=== PATIENT | male | born 1955 | race Hispanic/Latino ===

== ENCOUNTER 2018-12-13 05:58 | Observation (INO) | payer OTHER ==
[2018-12-08 10:10] LABS: BASOPHILS % (AUTO) 0.2 % (0.0-5.0); HEMATOCRIT 41.1 % (42-54); LYMPHOCYTES % (AUTO) 7.8 % (21.0-51.0); MEAN CORPUSCULAR HEMOGLOBIN 33.5 pg (27.0-33.0); MEAN CORPUSCULAR HGB CONC 34.5 g/dL (32.0-36.0); MEAN CORPUSCULAR VOLUME 97.1 fL (79-99); MONOCYTES % (AUTO) 4.2 % (3.0-13.0); NEUTROPHILS % (AUTO) 87.8 % (40.0-77.0); PLATELET COUNT (AUTO) 216 K/uL (130-400); RED BLOOD CELL COUNT(AUTO) 4.23 MIL/uL (4.50-6.20); WHITE BLOOD COUNT (AUTO) 9.3 K/uL (4.8-10.8)
[2018-12-08 10:12] LABS: APPEARANCE,URINE Clear (CLEAR); BILIRUBIN,URINE Negative (NEGATIVE); COLOR,URINE Yellow (YELLOW); GLUCOSE, URINE (UA) 250 mg/dL (NEGATIVE); KETONES,URINE Trace mg/dL (NEGATIVE); LEUKOCYTE ESTERASE ,URINE Trace (NEGATIVE); NITRATE,URINE Negative (NEGATIVE); OCCULT BLOOD,URINE Negative (NEGATIVE); PROTEIN,URINE POS 1+ (NEGATIVE)
[2018-12-08 10:21] LABS: INR 1.02 (0.85-1.15); PARTIAL THROMBOPLASTIN TIME 30.4 SEC (26.3-35.5); PROTHROMBIN TIME 10.7 SEC (9.6-11.6)
[2018-12-08 10:29] LABS: BACTERIA,URINE Rare /HPF (None Seen); RBC,URINE None Seen /HPF (0-1); SQUAMOUS EPITHELIAL CELL,UR Few /HPF (0-2); WBC,URINE 0-1 /HPF (0-1)
[2018-12-08 10:30] LABS: MUCUS,URINE Rare LPF (None Seen)
[2018-12-08 10:31] VITALS: BP 121/55
[2018-12-08 10:31] LABS: CREATININE 1.7 mg/dL (0.5-1.5)
--- NOTE | 2018-12-12 12:27 | NUR ---
ABNORMAL LABS REPORTED ABNORMAL LABS TO TEO REY. [id number], BUN 41, CREATINE 1.7. REDRAW BMP, START NS 100ML/HR ON ARRIVAL.
--- NOTE | 2018-12-12 12:31 | NUR ---
CHEST XRAY REPORTED ABNORMAL CHEST XRAY TO TEO REY. NO NEW ORDERS.
[~2018-12-13] VITALS: Ht 160 cm; Wt 90.2 kg
[2018-12-13] VITALS (10 sets, daily range): BP systolic 108–159; BP diastolic 58–83
[~2018-12-13 05:58] MED LIST: AMLODIPINE PO; ASPI-555 PO; CLOP75TA14 PO; ISOS30TA6 PO; LISI40TA4 PO; METF-444 PO; METO25TA6 PO; MONT10TA24 PO; RANO500T3 PO; SIMV40TA5 PO; SODIUM CHLORIDE 0.9% 500ML 500 ML IV SCH; TAMS0.4C32 PO
[2018-12-13 06:36] LABS: CREATININE 1.6 mg/dL (0.5-1.5); POTASSIUM 5.3 mmol/L (3.5-5.1)
--- NOTE | 2018-12-13 07:30 | NUR ---
NOTIFIED DIO BRUCE : INFORMED OF REDRAWN LAB RESULTS, BMP, NO NEW ORDERS RECEDVIED, INFORMED PT STATES HE HAS HAD A COUGH HAS BEEN SICK LAST 10 DAYS, STATES HE HAD A FEVER 8 DAYS AGO, TOOK ZPACK FROM [facility] LAST DOSE WAS YESTERDAY. NO FEVER TODAY, IS COUGHING, INSTRUCTED BY PA TO GIVE PT TESALON PEARLS FOR COUGH.
[2018-12-13] MEDS: SODIUM CHLORIDE 0.9% 1000ML 1,000 ML IV SCH ×3 (07:37→21:30)
[2018-12-13] MEDS: BENZONATATE 100 MG CAPSULE PO SCH ×2 (09:28→18:49)
[2018-12-13] MEDS ORDERED: IOHEXOL-350 50ML VIAL IV ONE (13:19)
[2018-12-13] MEDS ORDERED: IOHEXOL 350 MG/ML 100ML INFUS..BTL IV ONE ×2 (13:19→15:51)
[2018-12-13] MEDS ORDERED: LIDOCAINE HCL 1% 20 ML VIAL ONE (13:19)
[2018-12-13] MEDS ORDERED: HEPARIN SODIUM 1000UNIT/ML 10ML VIAL ONE (13:19)
[2018-12-13] MEDS ORDERED: NITROGLYCERIN 5 MG/ML 10 ML VIAL IV ONE (13:19)
[2018-12-13] MEDS ORDERED: MEPERIDINE-PF 25 MG/ML SYG ONE ×2 (15:02→15:18)
[2018-12-13] MEDS ORDERED: MIDAZOLAM HCL 1 MG/ML 2ML VIAL ONE ×2 (15:02→15:18)
[2018-12-13] MEDS ORDERED: DEXTROSE 50%-WATER 50 ML DISP.SYRIN IV PRN (16:30)
[2018-12-13] MEDS ORDERED: GLUCAGON 1MG KIT 1 MG ML IM PRN (16:30)
[2018-12-13] MEDS: INSULIN HUMULIN R 100 UNIT/ML 3ML SQ SCH ×2 (16:30→21:00)
[2018-12-13] MEDS ORDERED: ACETAMINOPHEN-CODEINE 300/30MG TAB PO PRN (16:30)
--- NOTE | 2018-12-13 17:15 | NUR ---
POST PROCEDURE RECEIVED PT FROM DIESEL ENGINE MECHANIC APPRENTICE, IN FLAT POSITION, A&OX3, CALM COOPERATIVE AND DOES NOT APPEAR TO BE IN ANY DISTRESS NOR ANY NEURO DEFICITS PRESENT. RT GROIN SOFT NONTENDER WITH NO OOZING OR HEMATOMA PRESENT. RT DP/PT PULSES PALPABLE, LEFT DP/PT PULSES BY DOPPLER. PT ON FLAT BEDREST UNTIL 2229. CALL LIGHT WITHIN REACH, FAMILY AT BEDSIDE.
[2018-12-13] MEDS ORDERED: PHARMACY COMMUNICATION MISC SCH (19:45)
--- NOTE | 2018-12-13 20:00 | NUR ---
ASSESSMENT PATIENT IS AAOX3. PATIENT DENIES CHEST PAIN AND SHORTNESS OF BREATH. ON ROOM AIR. RESPIRATIONS UNLABORED. SINUS RHYTHM HR 60'S TO 70'S. S/P LEFT HEART CATH. RT. GROIN SOFT WITHOUT BLEEDING OR HEMATOMA. PEDAL PULSES PALPABLE. NS INFUSING AT 125ML/HR. SEE DOCUMENTATION FOR FULL ASSESSMENT. CALL LIGHT WITHIN REACH. INSTRUCTED PATIENT TO CALL IF ASSISTANCE IS NEEDED. Addendum: 12/14/18 at 0055 by MIGUEL TRUJILLO RN RN BEDREST OVER AT 2230. REMINDED PATIENT NOT TO BEND OR LIFT RT LEG. PATIENT VERBALIZED UNDERSTANDING.
[2018-12-13] MEDS ORDERED: SIMVASTATIN 20 MG TABLET PO SCH (21:00)
[2018-12-13] MEDS: ISOSORBIDE MONO 30MG TAB SR PO SCH (21:00)
[2018-12-13] MEDS: METOPROLOL TARTRATE 25 MG TAB PO SCH (21:00)
--- NOTE | 2018-12-13 21:05 | NUR ---
RT. GROIN SOFT WITHOUT BLEEDING OR HEMATOMA.
[2018-12-13] MEDS: GUAIFENESIN-DM 200/20 MG 10 ML PO PRN (21:25)
--- NOTE | 2018-12-13 23:20 | NUR ---
RT. GROIN CONTINUES TO BE SOFT WITHOUT BLEEDING OR HEMATOMA.
[2018-12-14] MEDS: SODIUM CHLORIDE 0.9% 1000ML 1,000 ML IV SCH ×2 (00:29→02:00)
[2018-12-14 04:02] VITALS: BP 102/57
[2018-12-14 04:52] LABS: BASOPHILS % (AUTO) 0.8 % (0.0-5.0); EOSINOPHILS % (AUTO) 1.9 % (0.0-8.0); HEMATOCRIT 38.8 % (42-54); LYMPHOCYTES % (AUTO) 24.4 % (21.0-51.0); MEAN CORPUSCULAR HGB CONC 34.7 g/dL (32.0-36.0); MEAN CORPUSCULAR VOLUME 95.1 fL (79-99); MONOCYTES % (AUTO) 6.6 % (3.0-13.0); NEUTROPHILS % (AUTO) 66.3 % (40.0-77.0); PLATELET COUNT (AUTO) 247 K/uL (130-400); RED BLOOD CELL COUNT(AUTO) 4.07 MIL/uL (4.50-6.20); RED CELL DISTRIBUTION WIDTH 13.7 % (11.0-15.5); WHITE BLOOD COUNT (AUTO) 10.4 K/uL (4.8-10.8)
[2018-12-14 05:00] LABS: ALBUMIN 2.7 g/dL (3.5-5.0); BILIRUBIN,TOTAL 0.6 mg/dL (0.2-1.0); CREATININE 1.2 mg/dL (0.5-1.5); POTASSIUM 4.1 mmol/L (3.5-5.1); TOTAL PROTEIN, SERUM 6.5 g/dL (6.0-8.3)
--- NOTE | 2018-12-14 05:40 | NUR ---
RT. LAYA CARDENAS.
[2018-12-14] MEDS: INSULIN HUMULIN R 100 UNIT/ML 3ML SQ SCH ×2 (06:10→11:30)
[2018-12-14 07:48] VITALS: BP 120/68
[2018-12-14] MEDS ORDERED: MONTELUKAST SODIUM 10 MG TAB PO SCH (09:00)
[2018-12-14] MEDS ORDERED: CLOPIDOGREL BISULFATE 75 MG TAB PO SCH (09:00)
[2018-12-14] MEDS ORDERED: LISINOPRIL 40 MG TABLET PO SCH (09:00)
[2018-12-14] MEDS ORDERED: TAMSULOSIN HCL 0.4 MG CAP.ER.24H PO SCH (09:00)
[2018-12-14] MEDS ORDERED: RANOLAZINE 500 MG TAB.SR.12H PO SCH (09:00)
[2018-12-14] MEDS ORDERED: ASPIRIN 81MG TAB.CHEW PO SCH (09:00)
[2018-12-14] MEDS ORDERED: AMLODIPINE BESYLATE 2.5 MG TAB PO SCH (09:00)
[2018-12-14] MEDS: METOPROLOL TARTRATE 25 MG TAB PO SCH (09:43)
[2018-12-14] MEDS: ISOSORBIDE MONO 30MG TAB SR PO SCH (09:44)
[2018-12-14] MEDS ORDERED: METHYLPREDNISOLONE SOD SUCC 40MG/ML 1ML IVP SCH (09:45)
[2018-12-14] MEDS: GUAIFENESIN-DM 200/20 MG 10 ML PO PRN (09:56)
[2018-12-14] MEDS ORDERED: IPRATROPIUM/ALBUTEROL SULFATE 3 ML SOLUTION IH SCH (10:00)
[2018-12-14 11:07] VITALS: BP 115/74
--- NOTE | 2018-12-14 12:07 | NUR ---
Discharge instructions given, pt. able to teach back. Discharged home in stable condition, will call for w/c when his is here.
== END 2018-12-14 12:30 | disposition home or self-care (01) ==
LOC: DAH 05:58 → 2DH 16:29
PROVIDERS: ADMIT Internal Medicine; ATTEND Internal Medicine
DX: I25.119 Atherosclerotic heart disease of native coronary artery with unspecified angina pectoris (principal); I35.2 Nonrheumatic aortic (valve) stenosis with insufficiency; I10 Essential (primary) hypertension; E11.9 Type 2 diabetes mellitus without complications; E78.5 Hyperlipidemia, unspecified; J45.909 Unspecified asthma, uncomplicated; N28.9 Disorder of kidney and ureter, unspecified; Z82.0 Family history of epilepsy and other diseases of the nervous system; Q25.43 Congenital aneurysm of aorta; Z79.84 Long term (current) use of oral hypoglycemic drugs; Z87.891 Personal history of nicotine dependence; Z79.01 Long term (current) use of anticoagulants
CPT/HCPCS: 36415 ×3; 71045; 80048 ×2; 80053; 81001; 82948 ×5; 85025 ×2; 85610; 85730; 93005; 93458; 93567; 94640; 94664; 96374; A4606; C1725 ×2; C1760; C1769 ×4; C1874; C1887; C1894 ×2; C9600; G0378 ×20; J1644 ×2; J2175 ×2; J2250 ×2; J2920; J3490; J7030 ×2; Q9965 ×3; Q9967 ×2; 99156; 99157; C9601

== ENCOUNTER → 2019-05-12 | Outpatient (CLI) | payer OTHER ==
[~2019-05-12] MED LIST changes: +IOHEXOL-350 50ML VIAL IV ONE; +IOHEXOL-350 75 ML VIAL IV ONE; -SODIUM CHLORIDE 0.9% 500ML 500 ML IV SCH
== END | disposition home or self-care (01) ==
LOC: RAH 08:45
PROVIDERS: ATTEND Internal Medicine Cardiovascular Disease
DX: I70.213 Atherosclerosis of native arteries of extremities with intermittent claudication, bilateral legs (principal); M81.0 Age-related osteoporosis without current pathological fracture; I70.8 Atherosclerosis of other arteries
CPT/HCPCS: 75635; Q9967 ×2

== ENCOUNTER 2019-07-04 05:31 | Day surgery (SDC) | payer OTHER ==
[2019-06-29 11:06] LABS: BASOPHILS % (AUTO) 0.8 % (0.0-5.0); EOSINOPHILS % (AUTO) 5.6 % (0.0-8.0); HEMATOCRIT 40.5 % (42-54); LYMPHOCYTES % (AUTO) 25.3 % (21.0-51.0); MEAN CORPUSCULAR HGB CONC 34.8 g/dL (32.0-36.0); MEAN CORPUSCULAR VOLUME 94.8 fL (79-99); NEUTROPHILS % (AUTO) 54.3 % (40.0-77.0); PLATELET COUNT (AUTO) 228 K/uL (130-400); RED BLOOD CELL COUNT(AUTO) 4.27 MIL/uL (4.50-6.20); RED CELL DISTRIBUTION WIDTH 13.3 % (11.0-15.5)
[2019-06-29 11:13] LABS: CREATININE 1.1 mg/dL (0.5-1.5)
[2019-06-29 11:35] LABS: APPEARANCE,URINE CLEAR (CLEAR); BILIRUBIN,URINE SMALL (NEGATIVE); COLOR,URINE YELLOW (YELLOW); GLUCOSE, URINE (UA) NEGATIVE (NEGATIVE); KETONES,URINE NEGATIVE (NEGATIVE); LEUKOCYTE ESTERASE ,URINE NEGATIVE (NEGATIVE); NITRATE,URINE NEGATIVE (NEGATIVE); OCCULT BLOOD,URINE NEGATIVE (NEGATIVE); PROTEIN,URINE 100 mg/dL (NEGATIVE)
[2019-06-29 11:58] VITALS: BP 140/68
[2019-06-29 12:02] LABS: BACTERIA,URINE Few /HPF (None Seen); RBC,URINE 0-1 /HPF (0-1); SQUAMOUS EPITHELIAL CELL,UR 0-2 /HPF (0-2)
[2019-06-29 12:06] LABS: INR 1.02 (0.85-1.15); PARTIAL THROMBOPLASTIN TIME 28.9 SEC (26.3-35.5); PROTHROMBIN TIME 10.7 SEC (9.6-11.6)
--- NOTE | 2019-07-03 13:55 | NUR ---
xray chest xray reported to Elisa AZEVEDO, no further orders given at this time.
[2019-07-04] VITALS (14 sets, daily range): BP systolic 90–135; BP diastolic 49–71
[~2019-07-04] VITALS: Ht 167.6 cm; Wt 94.3 kg
[~2019-07-04 05:31] MED LIST changes: +BREO; -IOHEXOL-350 50ML VIAL IV ONE; -IOHEXOL-350 75 ML VIAL IV ONE; -LISI40TA4 PO; +NITR0.4T50 SL; +[UNRECOGNIZED DRUG - OTHER]
[2019-07-04] MEDS ORDERED: SODIUM CHLORIDE 0.9% 1000ML 1,000 ML IV ONE (07:01)
[2019-07-04] MEDS ORDERED: HEPARIN SODIUM 1000UNIT/ML 10ML VIAL ONE (07:41)
[2019-07-04] MEDS ORDERED: NITROGLYCERIN 5 MG/ML 10 ML VIAL IV ONE (07:41)
[2019-07-04] MEDS ORDERED: LIDOCAINE HCL 2% 20ML ONE (07:41)
[2019-07-04] MEDS ORDERED: IODIXANOL 320 MG/ML 100 ML VIAL ONE ×2 (07:41→09:22)
[2019-07-04] MEDS ORDERED: MEPERIDINE-PF 25 MG/ML SYG ONE ×3 (08:31→09:27)
[2019-07-04] MEDS ORDERED: MIDAZOLAM HCL 1 MG/ML 2ML VIAL ONE ×3 (08:31→09:27)
[2019-07-04] MEDS ORDERED: SODIUM CHLORIDE 0.9% 1000ML 1,000 ML IV SCH (10:08)
[2019-07-04] MEDS ORDERED: GLUCAGON 1MG KIT 1 MG ML IM PRN (10:15)
[2019-07-04] MEDS ORDERED: DEXTROSE 50%-WATER 50 ML DISP.SYRIN IV PRN (10:15)
[2019-07-04] MEDS ORDERED: INSULIN HUMULIN R 100 UNIT/ML 3ML SQ SCH (11:30)
[2019-07-04] MEDS ORDERED: ACETAMINOPHEN 325 MG TAB PO SCH (14:45)
--- NOTE | 2019-07-04 14:50 | NUR ---
Gave report to Valdez Moran no concerns voiced .
[2019-07-04] MEDS ORDERED: ACETAMINOPHEN 325 MG TAB ONE (14:51)
== END 2019-07-04 17:00 | disposition home or self-care (01) ==
LOC: DAH 05:31
PROVIDERS: ATTEND Internal Medicine Cardiovascular Disease
DX: I70.213 Atherosclerosis of native arteries of extremities with intermittent claudication, bilateral legs (principal); E11.9 Type 2 diabetes mellitus without complications; I10 Essential (primary) hypertension; E78.5 Hyperlipidemia, unspecified; E66.9 Obesity, unspecified; Z79.84 Long term (current) use of oral hypoglycemic drugs; Z79.899 Other long term (current) drug therapy; Z79.01 Long term (current) use of anticoagulants; Z72.89 Other problems related to lifestyle; Z68.33 Body mass index [BMI] 33.0-33.9, adult; Z87.891 Personal history of nicotine dependence; Z98.890 Other specified postprocedural states; Z82.49 Family history of ischemic heart disease and other diseases of the circulatory system; Z83.3 Family history of diabetes mellitus; Z82.5 Family history of asthma and other chronic lower respiratory diseases
CPT/HCPCS: 36415 ×2; 37221; 37226; 71045; 75625; 75716; 80048; 81001; 82948 ×2; 83880; 85025; 85610; 85730; 93005; A4606; C1725 ×2; C1760; C1769 ×2; C1874 ×2; C1876; C1893; C1894; J1644 ×3; J2175 ×3; J2250 ×3; J3490 ×2; J7030; Q9967 ×2; 75630; 99156; 99157

== ENCOUNTER → 2020-06-05 | Outpatient (CLI) | payer OTHER ==
[~2020-06-05] MED LIST changes: -ASPI-555 PO; +ASPI-556 PO; -MONT10TA24 PO; +MONT10TA26 PO; +SIMV-46 PO; -SIMV40TA5 PO
== END | disposition home or self-care (01) ==
LOC: SHCH 08:43
PROVIDERS: ATTEND Internal Medicine Cardiovascular Disease
DX: I65.23 Occlusion and stenosis of bilateral carotid arteries (principal); I25.10 Atherosclerotic heart disease of native coronary artery without angina pectoris
CPT/HCPCS: 93880

== ENCOUNTER → 2020-06-14 | Outpatient (CLI) | payer OTHER | END | disposition home or self-care (01) | LOC: SHCH 10:51 | PROVIDERS: ATTEND Internal Medicine Cardiovascular Disease | DX: I06.2 Rheumatic aortic stenosis with insufficiency (principal); I10 Essential (primary) hypertension | CPT/HCPCS: 93306; 93356 ==

== ENCOUNTER 2021-01-02 07:03 | Day surgery (SDC) | payer OTHER ==
[2020-12-31 14:11] LABS: BASOPHILS % (AUTO) 0.5 % (0.0-5.0); EOSINOPHILS % (AUTO) 2.9 % (0.0-8.0); HEMATOCRIT 49.2 % (42-54); LYMPHOCYTES % (AUTO) 32.8 % (21.0-51.0); MEAN CORPUSCULAR HEMOGLOBIN 31.1 pg (27.0-33.0); MEAN CORPUSCULAR HGB CONC 32.3 g/dL (32.0-36.0); MEAN CORPUSCULAR VOLUME 96.3 fL (79-99); MONOCYTES % (AUTO) 8.4 % (3.0-13.0); NEUTROPHILS % (AUTO) 55.1 % (40.0-77.0); PLATELET COUNT (AUTO) 172 K/uL (130-400); RED BLOOD CELL COUNT(AUTO) 5.11 MIL/uL (4.50-6.20); RED CELL DISTRIBUTION WIDTH 13.2 % (11.0-15.5); WHITE BLOOD COUNT (AUTO) 5.9 K/uL (4.8-10.8)
[2020-12-31 14:13] LABS: APPEARANCE,URINE Clear (CLEAR); BILIRUBIN,URINE Negative (NEGATIVE); COLOR,URINE Yellow (YELLOW); GLUCOSE, URINE (UA) Negative (NEGATIVE); KETONES,URINE Negative (NEGATIVE); LEUKOCYTE ESTERASE ,URINE Trace (NEGATIVE); NITRATE,URINE Negative (NEGATIVE); OCCULT BLOOD,URINE Negative (NEGATIVE); PH,URINE 5.5 (5.0-8.0); PROTEIN,URINE Negative (NEGATIVE); UROBILINOGEN,URINE 0.2 mg/dL (0.2-1.0)
[2020-12-31 14:25] LABS: CREATININE 1.6 mg/dL (0.5-1.5); INR 1.08 (0.85-1.15); POTASSIUM 4.1 mmol/L (3.5-5.1); PROTHROMBIN TIME 11.7 SEC (9.6-11.6)
[2020-12-31 14:26] LABS: PARTIAL THROMBOPLASTIN TIME 27.8 SEC (26.3-35.5)
[2020-12-31 14:43] LABS: BACTERIA,URINE Few /HPF (None Seen); RBC,URINE 0-1 /HPF (0-1); SQUAMOUS EPITHELIAL CELL,UR Rare /HPF (0-2)
[2020-12-31 14:46] LABS: MUCUS,URINE Rare LPF (None Seen)
[~2021-01-02] VITALS: Ht 160 cm; Wt 92.4 kg
[2021-01-02] VITALS (11 sets, daily range): BP systolic 101–134; BP diastolic 58–73
[~2021-01-02 07:03] MED LIST changes: +0.9%NACL 1000ML 1,000 ML IV SCH; -ASPI-556 PO; -BREO; -ISOS30TA6 PO; +LISI5TAB21 PO; -METO25TA6 PO; +MONT-39 PO; -MONT10TA26 PO; -SIMV-46 PO; -[UNRECOGNIZED DRUG - OTHER]
[2021-01-02 07:52] LABS: CREATININE 1.3 mg/dL (0.5-1.5); POTASSIUM 4.5 mmol/L (3.5-5.1)
[2021-01-02] MEDS ORDERED: AMLO2.5T4 PO (08:12)
[2021-01-02] MEDS ORDERED: SIMV-46 PO (08:12)
[2021-01-02] MEDS ORDERED: FLUT1AER IH (08:12)
[2021-01-02] MEDS ORDERED: METO25TA6 PO (08:12)
[2021-01-02] MEDS ORDERED: NITROGLYCERIN 2 MG VIAL IV ONE (11:34)
[2021-01-02] MEDS ORDERED: LIDOCAINE HCL 400MG/20ML VIAL ONE (11:34)
[2021-01-02] MEDS ORDERED: MIDAZOLAM HCL 1 MG/ML 2ML VIAL ONE ×3 (11:34→13:05)
[2021-01-02] MEDS ORDERED: SODIUM BICARB 50MEQ 50ML VIAL 50 ML ONE (11:34)
[2021-01-02] MEDS ORDERED: MEPERIDINE-PF 25 MG/ML SYG ONE ×3 (11:34→13:05)
[2021-01-02] MEDS ORDERED: HEPARIN 10,000 UNIT/10ML (1,000 UNIT/ML) VIAL ONE (11:34)
[2021-01-02] MEDS ORDERED: IOHEXOL-350 50ML VIAL IV ONE (11:36)
[2021-01-02] MEDS ORDERED: IOHEXOL 350 MG/ML 100ML INFUS..BTL IV ONE (11:36)
[2021-01-02] MEDS ORDERED: DEXTROSE 50%-WATER 50 ML DISP.SYRIN IV PRN (13:30)
[2021-01-02] MEDS ORDERED: 0.9%NACL 1000ML 1,000 ML IV SCH (13:30)
[2021-01-02] MEDS ORDERED: GLUCAGON 1MG KIT 1 MG ML IM PRN (13:30)
[2021-01-02] MEDS ORDERED: INSULIN HUMULIN R 100 UNIT/ML 3ML SQ SCH (16:30)
== END 2021-01-02 19:15 | disposition home or self-care (01) ==
LOC: DAH 07:03
PROVIDERS: ATTEND Internal Medicine Cardiovascular Disease
DX: I25.118 Atherosclerotic heart disease of native coronary artery with other forms of angina pectoris (principal); I10 Essential (primary) hypertension; E11.9 Type 2 diabetes mellitus without complications; E78.5 Hyperlipidemia, unspecified; E86.0 Dehydration; Z95.5 Presence of coronary angioplasty implant and graft; Z79.84 Long term (current) use of oral hypoglycemic drugs; Z79.82 Long term (current) use of aspirin; Z79.01 Long term (current) use of anticoagulants; Z79.899 Other long term (current) drug therapy
CPT/HCPCS: 36415 ×2; 71045; 80048 ×2; 81001; 82948 ×2; 85025; 85610; 85730; 93005; 93460; 96360; 96361; A4215; A4216; A4221; A4222; A4223 ×3; A4606; A4663; C1769 ×2; C1893 ×2; C1894 ×3; J1644; J2175 ×3; J2250 ×3; J3490 ×3; J7030; Q9965; Q9967 ×2; 99156; 99157

== ENCOUNTER 2023-03-12 13:56 | Emergency (ER) | payer OTHER ==
[~2023-03-12] VITALS: Ht 162.6 cm; Wt 89.8 kg
[~2023-03-12 13:56] MED LIST changes: -0.9%NACL 1000ML 1,000 ML IV SCH; -AMLODIPINE PO; +CILO100T3 PO; +CLOP-31 PO; -CLOP75TA14 PO; +FURO40TA5 PO; +METO25TA6 PO; +RANO10005 PO; -RANO500T3 PO; +SIMV-46 PO; +TADA20TA43 PO
[2023-03-12 14:35] LABS: BASOPHILS % (AUTO) 0.5 % (0.0-5.0); EOSINOPHILS % (AUTO) 3.8 % (0.0-8.0); HEMATOCRIT 40.5 % (42-54); LYMPHOCYTES % (AUTO) 33.9 % (21.0-51.0); MEAN CORPUSCULAR HEMOGLOBIN 32.9 pg (27.0-33.0); MEAN CORPUSCULAR HGB CONC 34.1 g/dL (32.0-36.0); MEAN CORPUSCULAR VOLUME 96.4 fL (79-99); NEUTROPHILS % (AUTO) 53.2 % (40.0-77.0); NUCLEATED RED BLOOD CELLS 0.2 % (0.0-0.19); PLATELET COUNT (AUTO) 223 K/uL (130-400); RED CELL DISTRIBUTION WIDTH 13.4 % (11.0-15.5)
[2023-03-12 14:50] LABS: CREATININE 1.4 mg/dL (0.5-1.5); POTASSIUM 4.1 mmol/L (3.5-5.1)
[2023-03-12 15:05] LABS: ALBUMIN 3.8 g/dL (3.5-5.0); TOTAL PROTEIN, SERUM 7.8 g/dL (6.0-8.3)
[2023-03-12 15:17] LABS: MAGNESIUM 2.2 mg/dL (1.80-2.40)
[2023-03-12 16:18] VITALS: BP 153/69
== END 2023-03-12 16:37 | disposition home or self-care (01) ==
LOC: EDH 13:56
DX: R55 Syncope and collapse (principal); J44.9 Chronic obstructive pulmonary disease, unspecified; I25.10 Atherosclerotic heart disease of native coronary artery without angina pectoris; E11.9 Type 2 diabetes mellitus without complications; F17.200 Nicotine dependence, unspecified, uncomplicated; Z79.899 Other long term (current) drug therapy; Z95.1 Presence of aortocoronary bypass graft
CPT/HCPCS: 36415; 71045; 80053; 82550; 83605; 83735; 83874; 83880; 84484; 85025; 93005

== ENCOUNTER → 2024-06-23 | Outpatient (CLI) | payer OTHER ==
[~2024-06-23] MED LIST changes: +AEC81 PO; +FURO20TA6 PO; -FURO40TA5 PO; -LISI5TAB21 PO; +METO25 PO; -METO25TA6 PO; -NITR0.4T50 SL; -RANO10005 PO; -TADA20TA43 PO; +TADA20TA72 PO
[2024-06-23 12:04] LABS: BASOPHILS # (AUTO) 0.05 K/uL (0.00-0.20); BASOPHILS % (AUTO) 0.6 % (0.0-5.0); EOSINOPHILS # (AUTO) 0.21 K/uL (0.00-0.70); EOSINOPHILS % (AUTO) 2.7 % (0.0-8.0); HEMATOCRIT 40.3 % (42-54); IMMATURE GRANULOCYTE ABSOLUTE 0.05 K/uL (0-1); LYMPHOCYTES # (AUTO) 2.2 K/uL (1.0-4.8); LYMPHOCYTES % (AUTO) 28.5 % (21.0-51.0); MEAN CORPUSCULAR HEMOGLOBIN 32.2 pg (27.0-33.0); MEAN CORPUSCULAR HGB CONC 33.7 g/dL (32.0-36.0); MEAN CORPUSCULAR VOLUME 95.5 fL (79-99); MONOCYTES # (AUTO) 0.6 K/uL (0.1-1.0); NEUTROPHILS # (AUTO) 4.7 K/uL (1.8-7.7); NEUTROPHILS % (AUTO) 60.6 % (40.0-77.0); PLATELET COUNT (AUTO) 211 K/uL (130-400); RED BLOOD CELL COUNT(AUTO) 4.22 MIL/uL (4.50-6.20); RED CELL DISTRIBUTION WIDTH 14.1 % (11.0-15.5); WHITE BLOOD COUNT (AUTO) 7.8 K/uL (4.8-10.8)
[2024-06-23 12:28] LABS: INR 1.02 (0.85-1.15)
[2024-06-23 12:29] LABS: PARTIAL THROMBOPLASTIN TIME 25.6 SEC (26.3-35.5)
[2024-06-23 15:27] LABS: CREATININE 1.9 mg/dL (0.5-1.3); POTASSIUM 4.4 mmol/L (3.5-5.1)
== END | disposition home or self-care (01) ==
LOC: LAB 11:10
PROVIDERS: ATTEND Internal Medicine Cardiovascular Disease
DX: I10 Essential (primary) hypertension (principal); I50.32 Chronic diastolic (congestive) heart failure
CPT/HCPCS: 36415; 80048; 85025; 85610; 85730

== ENCOUNTER → 2024-07-03 | Outpatient (CLI) | payer OTHER ==
[2024-07-03 12:31] LABS: ALBUMIN 3.5 g/dL (3.5-5.0); BILIRUBIN,TOTAL 0.5 mg/dL (0.2-1.0); CREATININE 1.3 mg/dL (0.5-1.3); POTASSIUM 4.7 mmol/L (3.5-5.1); TOTAL PROTEIN, SERUM 7.4 g/dL (6.0-8.3)
== END | disposition home or self-care (01) ==
LOC: LAB 08:56
PROVIDERS: ATTEND Internal Medicine Cardiovascular Disease
DX: I10 Essential (primary) hypertension (principal); E78.5 Hyperlipidemia, unspecified; I35.0 Nonrheumatic aortic (valve) stenosis
CPT/HCPCS: 36415; 80053; 83880